=== PATIENT | female | born 1975 | race Caucasian/White ===

== ENCOUNTER → 2018-07-18 | Outpatient (CLI) | payer OTHER ==
[2016-05-03 10:05] VITALS: BP 133/94
[~2018-07-18] MED LIST: ALPR0.5T PO; CETI10TA22 PO; LEXAPRO20 MG PO; MONT10TA9 PO; TRI-SPRINTEC PO
--- NOTE | 2018-07-18 08:54 | KCIC ---
EXAM: Abdomen sonogram. HISTORY: Pain. TECHNIQUE: Sonographic imaging of the abdomen was performed. COMPARISON: None. FINDINGS: The liver is enlarged. There is hepatic steatosis. No focal hepatic lesion is seen. The gallbladder is surgically absent. The common bile duct is normal in caliber. The left kidney is lobulated and partially obscured due to bowel gas. There is no solid or cystic renal lesion. There is no hydronephrosis. The pancreas is unremarkable. The spleen is normal in size. The aorta and inferior vena cava are partially obscured due to bowel gas. There is a small hernia within the superior ventral abdominal wall at the site of palpable concern. The hernia defect measures approximately 1.0 cm and the hernia sac contains fat and possibly a small bowel loop. IMPRESSION: 1. Small superior ventral abdominal wall hernia containing fat and a possible loop of small bowel. Correlate with physical exam findings. 2. Hepatomegaly and hepatic steatosis. 3. Cholecystectomy. 3. Left renal cortical lobulation likely due to scarring. Electronically signed by: Nadine Lindo MD (07/18/2018 8:51 AM) [facility]
== END | disposition home or self-care (01) ==
LOC: KCIC US 08:07
PROVIDERS: ATTEND Internal Medicine
DX: K43.9 Ventral hernia without obstruction or gangrene (principal); K76.0 Fatty (change of) liver, not elsewhere classified; R16.0 Hepatomegaly, not elsewhere classified; Z90.49 Acquired absence of other specified parts of digestive tract
CPT/HCPCS: 76700

== ENCOUNTER → 2018-10-18 | Outpatient (CLI) | payer OTHER ==
[2016-05-03 10:05] VITALS: BP 133/94
[~2018-10-18] MED LIST changes: +LIDOCAINE 2%/EPI 1:100,000 20 ML VIAL. IJ ONE; +MONT10TA49 PO; -MONT10TA9 PO
--- NOTE | 2018-10-19 17:07 | PATHOLOGY ---
[facility] Accession Number: [id number] . 01 Material submitted: . breast - RIGHT BREAST, 6:00, 7CFN. Modifiers: right, 6:00 . 01 Clinical history: . Right breast mass . 02 Diagnosis: Breast tissue, right breast mass 6:00 needle biopsies: - Focal stromal fibrosis containing complex of cysts and dilated ducts showing extensive apocrine metaplasia and focal chronic inflammation. LBQ/10/19/2018 . 02 Comment: There is no atypia or evidence of malignancy. (JPM/db; 10/19/2018) . 02 Electronically signed: . Tyler Abbasi MD, Pathologist NPI- [id number] . 01 Gross description: . Received in formalin labeled "Re Sheppard, right breast 6:00, 7 cm FN," are multiple needle cores of yellow-hodges fibrofatty tissue measuring 1.8 x 0.9 x 0.5 cm in aggregate dimensions. The tissue is submitted in its entirety in cassette A1 through A3. The cold ischemic time is 2 minutes. The total formalin fixation time is approximately 9 hours. (TSD; 10/18/2018) TOB/TOB . 02 Pathologist provided ICD-10: N60.31, N60.01, N60.81, N61.0 . 02 CPT . 022251 Specimen Comment: A courtesy copy of this report has been sent to Specimen Comment: [phone], , . Specimen Comment: Report sent to Performed at: [address], [place], [place] [id number] MD Chito Grimes MD Phone: [phone] Performed at: 02 [facility] [address] [place], [place] [id number] MD Tyler Abbasi MD Phone: [phone]
--- NOTE | 2018-10-22 09:47 | RAD ---
Ultrasound-guided right breast biopsy, 10/18/2018: History: Breast nodule Recent imaging demonstrated a suspicious nodule at the 6:00 location in the right breast approximate 7 cm from the nipple. Under local anesthesia, aseptic conditions and sonographic guidance the [employer] biopsy instrument was passed into the posterior aspect of this lesion via a lateral approach. Multiple 12-gauge vacuum-assisted core samples were obtained and sent to pathology for evaluation. A biopsy marker was then deposited at the biopsy site. The biopsy instrument was removed and hemostasis obtained. Two-view postprocedural digital mammograms were then obtained to document the position of the biopsy marker. The patient tolerated the procedure well and left the department in good condition. The subsequent pathology report indicated the presence of stromal fibrosis, cysts and apocrine metaplasia with no evidence of malignancy. This is considered to be a concordant finding. Note is made that the previous ultrasound imaging demonstrated an additional elongated ductal type structure in the right breast which was thought to be probably benign. Sonographic surveillance of that structure is suggested.
== END | disposition home or self-care (01) ==
LOC: US 11:42
PROVIDERS: ATTEND Radiology Diagnostic Radiology
DX: N60.31 Fibrosclerosis of right breast (principal); N61.0 Mastitis without abscess
CPT/HCPCS: 19083; 77065; 88305; C1713; 19085; 76942

== ENCOUNTER → 2019-11-13 | Outpatient (CLI) | payer OTHER ==
[2016-05-03 10:05] VITALS: BP 133/94
[~2019-11-13] MED LIST changes: -CETI10TA22 PO; +CETI10TA24 PO; -LIDOCAINE 2%/EPI 1:100,000 20 ML VIAL. IJ ONE
--- NOTE | 2019-11-13 14:27 | RAD ---
Examination: BREAST RIGHT History: Reason: R BREAST MASS Comparison/Correlation: Mammographic exams dated 10/25/2019 and 08/13/2018. Right breast ultrasound 10/25/2019. Findings: The patient presented for ultrasound-guided right breast biopsy of the 9:00 mass 8 centimeters from the nipple. Upon ultrasound imaging today at that site and about it, a definite reproducible finding is not seen. There is no suspicious finding otherwise. No palpable modality is noted at this site. Impression: BI-RADS Category 3-probably benign. Six-month follow-up right unilateral mammogram and right limited wrist ultrasound exam are recommended to assess stability. Electronically signed by: Joel Perez MD (11/13/2019 2:24 PM) [id number]
== END | disposition home or self-care (01) ==
LOC: US 13:33
PROVIDERS: ATTEND Internal Medicine
DX: N63.10 Unspecified lump in the right breast, unspecified quadrant (principal)
CPT/HCPCS: 76641

== ENCOUNTER → 2021-01-06 | Outpatient (CLI) | payer OTHER ==
[2016-05-03 10:05] VITALS: BP 133/94
[~2021-01-06] MED LIST changes: -CETI10TA24 PO; +CETI10TA74 PO
--- NOTE | 2021-01-06 11:53 | RAD ---
EXAM: Sonographic guided right breast biopsy; right breast biopsy clip placement; right breast postbi opsy mammogram. HISTORY: 45-year-old female presents for sonographic and biopsy of a lesion within the 9:00 position of the right breast demonstrated on a study performed 12/04/2020. TECHNIQUE: The risks of the procedure discussed with the patient and written and consent was obtained . A timeout was performed. Sonographic imaging of the right breast was performed and the lesion of co ncern at the 9:00 position 8 cm from the nipple was identified. The skin in this location was sterile ly prepped, draped and infiltrated with 1 percent lidocaine. Multiple core samples were obtained thro ugh the lesion of concern with sonographic guidance. A biopsy clip was advanced into the biopsy bed. Manual compression was maintained until hemostasis was achieved. A sterile bandage was placed. A post biopsy mammogram demonstrates the biopsy clip in expected position. The patient tolerated the proced ure without complication and was discharged in stable condition. IMPRESSION: Sonographic guided biopsy of a previously demonstrated lesion within the 9:00 position of the right breast and biopsy clip placement. An addendum to this report will be submitted when pathol ogy results are available. Electronically signed by: Nadine Lindo MD (01/06/2021 11:50 AM) [id number]
--- NOTE | 2021-01-07 14:23 | PATHOLOGY ---
[facility] Accession Number: [id number] . 01 Material submitted: . breast - RIGHT BREAST MASS 9:00 8CMFN. Modifiers: right . 01 Clinical history: . RIGHT BREAST MASS . 02 Diagnosis: Breast tissue, right breast mass 9:00 8 cm from nipple needle biopsies: - Fibrocystic changes with the following component: - Stromal fibrosis. - Mild duct ectasia. - Complex of small cysts showing papillary apocrine metaplasia. (JPM:[facility]; 01/07/2021) [facility] 01/07/2021 1316 Local . 02 Comment: There is no atypia or evidence of malignancy. (JPM:pit; 01/07/2021) . 02 Electronically signed: . Tyler Abbasi MD, Pathologist NPI- [id number] . 01 Gross description: . The specimen is received in formalin, labeled "Re Sheppard, right breast 9:00". Received are 6 needle cores of fibrofatty tissue measuring 0.8 x 1.2 x 0.2 cm in aggregate dimensions. The specimen is submitted entirely in cassettes A1 through A3. The specimen is collected at 1113 and placed into formalin at 1114 on 01/06/2021. The specimen is removed from formalin at 2150 on 01/06/2021. The total formalin fixation time is 10 hours and 36 minutes.([facility]; 01/06/2021) [facility] 01/06/2021 1510 Local . 02 Pathologist provided ICD-10: N60.11, N60.31, N60.41 . 02 CPT . 752217 Specimen Comment: A courtesy copy of this report has been sent to [phone] Specimen Comment: Report sent to Performed at: 01 [facility] [address] [facility] [address], [place] [id number] MD Arnav Mcrae MD Phone: [phone] Performed at: 02 [facility] [address] [place], [place] [id number] MD Tyler Abbasi MD Phone: [phone]
== END | disposition home or self-care (01) ==
LOC: US 13:19
PROVIDERS: ATTEND Surgery
DX: N63.11 Unspecified lump in the right breast, upper outer quadrant (principal); R92.8 Other abnormal and inconclusive findings on diagnostic imaging of breast; N60.31 Fibrosclerosis of right breast; N60.41 Mammary duct ectasia of right breast; F32.9 Major depressive disorder, single episode, unspecified; F41.9 Anxiety disorder, unspecified; Z90.49 Acquired absence of other specified parts of digestive tract; Z98.890 Other specified postprocedural states; Z79.899 Other long term (current) drug therapy
CPT/HCPCS: 19083; 77065; A4648